=== PATIENT | male | born 1990 | race Two or more races ===

== ENCOUNTER 2018-11-06 01:55 | Emergency (ER) | payer MEDICAID ==
--- NOTE | 2018-11-06 02:56 | ED Physician Chart ---
ED Chief Complaint/HPI - Patient Information Date Seen:: 11/06/18 Time Seen:: 02:53 Chief Complaint:: palpitations anxiety History of Present Illness:: 27 yr old male here for possible fast heart rate palpitations anxiety sob trouble sleeping tossing turning Allergies:: Allergies Allergy/AdvReac Type Severity Reaction Status Date / Time No Known Allergies Allergy Verified 11/06/18 02:11 Vitals:: Vital Signs - 8 hr 11/06/18 01:55 Temp 98.4 F HR 75 RR 18 BP 140/90 O2 Sat % 96 ED Review of Systems - Review of Systems General/Constitutional: No chills Head: Headache Eyes: No loss of vision ENT: No earache Neck: No neck pain Cardio Vascular: Palpitations Pulmonary: No SOB GI: No vomiting G/U: No dysuria Musculoskeletal: No bone or joint pain Psychiatric: Anxiety Hematopoietic: No bruising Allergic/Immuno: No urticaria Neurological: No syncope ED Past Medical History - Past Medical History Past Medical History: Other (fast heart rate) Family Medical History - Family Member Mother History Unknown: Yes ED Physical Exam - Physical Examination General/Constitutional: Awake, Well-developed, well-nourished, Alert, No distress, GCS 15, Non-toxic appearing, Ambulatory Head: Atraumatic Eyes: Lids, conjuctiva normal, PERRL, EOMI Skin: Nl inspection, No rash, No skin lesions, No ecchymosis, Well hydrated, No lymphadenopathy ENMT: External ears, nose nl, Nasal exam nl, Lips, teeth, gums nl Neck: Nontender, Full ROM w/o pain, No JVD, No nuchal rigidity, No bruit, No mass, No stridor Respiratory: Nl effort/Exclusion, Clear to Auscultation, No Wheeze/Rhonchi/Rales Cardio Vascular: RRR, No murmur, gallop, rubs, NL S1 S2 GI: No tenderness/rebounding/guarding, No organomegaly, No hernia, Normal BS's, Nondistended, No mass/bruits, No McBurney tenderness : No CVA tenderness Extremities: No tenderness or effusion, Full ROM, normal strength in all extremities, No edema, Normal digits & nails Neuro/Psych: Alert/oriented, DTR's symmetric, Normal sensory exam, Normal motor strength, Judgement/insight normal, Mood normal, Normal gait, No focal deficits Misc: Normal back, No paraspinal tenderness ED Assessment - Assessment General Assessment: anxiety ED Septic Shock - . Is Septic Shock (SBP<90, OR Lactate>4 mmol\L) present?: No - <6hrs of presentation: Vital Signs: Vital Signs - 8 hr 11/06/18 01:55 Temp 98.4 F HR 75 RR 18 BP 140/90 O2 Sat % 96 ED Reassessment (Disposition) - Reassessment Reassessment:: anxiety - Diagnosis Diagnosis:: anxiety - Aftercare/Follow up Instructions Aftercare/Follow-Up Instructions:: Counseled pt regarding lab results/diagnosis & need follow up - Patient Disposition Discharge/Transfer:: Home Condition at Disposition:: Stable
[2018-11-06 03:24] LABS: URINE SOURCE CLEAN C
[2018-11-06 03:30] LABS: URINE BILIRUBIN SMALL (NEGATIVE); URINE BLOOD TRACE (NEGATIVE); URINE GLUCOSE (UA) NEGATIVE (NEGATIVE); URINE KETONE 15 mg/dL (NEGATIVE); URINE LEUKOCYTE ESTERASE NEGATIVE (NEGATIVE); URINE MICROSCOPIC INDICATED? YES; URINE NITRATE NEGATIVE (NEGATIVE); URINE PH 5.5 (4.6 - 8.0); URINE PROTEIN NEGATIVE (NEGATIVE); URINE UROBILINOGEN 0.2 E.U./dL (0.2 - 1.0)
[2018-11-06 03:30] LABS: % BASOPHILS 0.3 % (0.0-2.0); % EOSINOPHILS 1.1 % (0.0-5.0); % MONOCYTES 7.3 % (2.0-10.0); % NEUTROPHILS 59.3 % (40.0-80.0); EOSINOPHILE ABSOLUTE 0.1 Th/cmm (0.1-0.4); HEMOGLOBIN 14.3 gm/dL (12-16); LYMPHOCYTE ABSOLUTE 2.9 Th/cmm (1.5-3.0); MEAN CELL VOLUME 78.1 fl (80-99); MEAN CORPUSCULAR HEMOGLOBIN 25.4 pg (26.0-30.0); MEAN CORPUSCULAR HGB CONC 32.5 pg (28.0-36.0); MONOCYTE ABSOLUTE 0.7 Th/cmm (0.3-1.0); NEUTROPHILE ABSOLUTE 5.4 Th/cmm (1.8-8.0); PLATELET COUNT 257 Th/cmm (150-400); RED BLOOD COUNT 5.63 Mil/cmm (4.30-5.70); RED CELL DISTRIBUTION WIDTH 13.2 % (11.5-20.0); WHITE BLOOD COUNT 9.1 Th/cmm (4.8-10.8)
[2018-11-06 03:54] LABS: AMPHETAMINE URINE NEGATIVE (NEGATIVE); BARBITURATES URINE NEGATIVE (NEGATIVE); BENZODIAZEPINES QUAL URINE NEGATIVE (NEGATIVE); CANNABINOID THC NEGATIVE (NEGATIVE); COCAINE METABOLITE QUAL URINE NEGATIVE (NEGATIVE); METHADONE URINE NEGATIVE (NEGATIVE); METHAMPHETAMINES QUAL URINE NEGATIVE (NEGATIVE); OPIATES (MORPHINE) QUAL. URINE NEGATIVE (NEGATIVE); PHENCYCLIDINE (PCP) URINE NEGATIVE (NEGATIVE); TRICYCLICS (TCA) QUAL. URINE NEGATIVE (NEGATIVE)
[2018-11-06 03:56] LABS: URINE CLARITY CLEAR (CLEAR); URINE COLOR YELLOW
[2018-11-06 05:29] LABS: URINE EPITHELIAL CELLS RARE /lpf (FEW); URINE RBC 0-2 /hpf (0-5); URINE WBC NONE SEEN /hpf (0-5)
[2018-11-06 05:30] LABS: URINE BACTERIA NONE SEEN /hpf (NONE SEEN)
[2018-11-06 08:40] LABS: ALBUMIN 4.3 gm/dL (4.2-5.5); ALKALINE PHOSPHATASE 55 U/L (34-104); CHLORIDE 101 mEq/L (98-107); POTASSIUM SERUM 3.5 mEq/L (3.5-5.1); SODIUM SERUM 138 mEq/L (136-145)
[2018-11-06 08:59] LABS: BILIRUBIN,TOTAL 0.5 mg/dL (0.3-1.0); BUN - UREA NITROGEN 16 mg/dL (7-25); CALCIUM SERUM 9.8 mg/dL (8.6-10.3); CARBON DIOXIDE 18.2 mEq/L (21.0-31.0); CREATININE - SERUM 1.1 mg/dL (0.7-1.3); GFR AFRICAN-AMERICAN > 60.0 ml/min (>90); GFR NON AFRICAN-AMERICAN > 60.0 ml/min; GLUCOSE 96 mg/dL (70-105); SGOT 12 U/L (13-39); SGPT/ALT 12 U/L (7-52); TOTAL PROTEIN,SERUM 7.2 gm/dL (6.0-8.3)
[2018-11-06 09:12] LABS: ANION GAP 22.3 (7.0-16.0)
[2018-11-06 09:15] LABS: ALB/GLOB RATIO 1.5 (1.0-1.8)
== END 2018-11-06 05:19 | disposition home or self-care (01) ==
LOC: ER 01:55
DX: F41.9 Anxiety disorder, unspecified (principal)
CPT/HCPCS: 36415-UA; 80053-TC; 80307; 81001-TC; 82550-TC; 84484-TC; 85025-TC; 93005